=== PATIENT | female | born 1940 | race Caucasian/White ===

== ENCOUNTER 2017-07-19 15:30 | Emergency (ER) | payer MEDICARE, OTHER ==
--- NOTE | 2017-07-19 17:15 | UC ---
FLU HPI - HPI Summary HPI Summary: 76 year old female presents with complains of fever, chills, left ear pain and malaise. - History of Current Complaint Chief Complaint: UCGeneralIllness Stated Complaint: HOT AND COLD FLASHES,EAR COMPLAINT Time Seen by Provider: 07/19/17 17:15 Hx Obtained From: Patient Onset/Duration: Sudden Onset Severity Currently: Moderate Severity Initially: Severe Associated Signs & Symptoms: Positive: Negative - Risk Factors Influenza Risk Factors: Negative - Allergy/Home Medications Allergies/Adverse Reactions: Allergies Allergy/AdvReac Type Severity Reaction Status Date / Time Cephalexin [From Keflex] Allergy Unknown Verified 07/19/17 17:31 Reaction Details Cephalosporins Allergy Unknown Verified 07/19/17 17:31 Reaction Details Codeine Allergy Unknown Verified 07/19/17 17:31 Reaction Details Levofloxacin [From Levaquin] Allergy Unknown Verified 07/19/17 17:31 Reaction Details Magnesium Allergy Unknown Verified 07/19/17 17:31 Reaction Details Nitrofurantoin Allergy Unknown Verified 07/19/17 17:31 [From Macrobid] Reaction Details Ofloxacin [From Floxin] Allergy Unknown Verified 07/19/17 17:31 Reaction Details Omeprazole Allergy Unknown Verified 07/19/17 17:31 Reaction Details Paroxetine [From Paxil] Allergy Unknown Verified 07/19/17 17:31 Reaction Details Penicillins Allergy Unknown Verified 07/19/17 17:31 Reaction Details Polyethylene Glycol Allergy Unknown Verified 07/19/17 17:31 [From MiraLax] Reaction Details Pseudoephedrine Allergy Unknown Verified 07/19/17 17:31 [From Sudafed] Reaction Details Sulfa Antibiotics Allergy Unknown Verified 07/19/17 17:31 Reaction Details Venlafaxine [From Effexor] Allergy Unknown Verified 07/19/17 17:31 Reaction Details PMH/Surg Hx/FS Hx/Imm Hx Previously Healthy: Yes - Surgical History Surgical History: Yes Surgery Procedure, Year, and Place: T & A as a child. stent in brain. hysterectomy - Family History Known Family History: Positive: None - Social History Alcohol Use: None Substance Use Type: None Smoking Status (MU): Never Smoked Tobacco - Immunization History Most Recent Influenza Vaccination: 2017 Review of Systems Constitutional: Fever, Chills, Fatigue Skin: Negative Eyes: Negative ENT: Ear Ache Respiratory: Negative Cardiovascular: Negative Gastrointestinal: Negative Genitourinary: Negative Motor: Negative Neurovascular: Negative Musculoskeletal: Negative Neurological: Headache Psychological: Negative All Other Systems Reviewed And Are Negative: Yes Physical Exam Triage Information Reviewed: Yes Appearance: Ill-Appearing Vital Signs: Initial Vital Signs Temp 36.4 C 07/19/17 17:01 Pulse 85 07/19/17 17:01 Resp 24 07/19/17 17:01 BP 143/85 07/19/17 17:01 Pulse Ox 97 07/19/17 17:01 Eye Exam: Normal ENT: Positive: Nasal congestion, Nasal drainage Dental Exam: Normal Neck exam: Normal Neck: Positive: 1 Respiratory: Positive: Wheezing Cardiovascular Exam: Normal Abdominal Exam: Normal Musculoskeletal Exam: Normal Neurological: Positive: Fatigued, Lethargic Psychological Exam: Normal Skin Exam: Normal Flu Course/Dx - Differential Dx/Diagnosis Provider Diagnoses: malaise. ear pain. dehydration. fever. chills. hot flashes. syncope Discharge - Discharge Plan Condition: Stable Disposition: OTHER Discharge Disposition Comment: patient suggested to go to the er Patient Education Materials: Fever in Adults (ED) Referrals: Aly Mendoza MD [Primary Care Provider] - Additional Instructions: patient suggested to go to the er for severe dehydration and fever.
[2017-07-19 17:49] VITALS: BP 182/95
== END 2017-07-19 17:49 ==
LOC: UCCORT 15:30
DX: H92.02 Otalgia, left ear (principal); R53.81 Other malaise; E86.0 Dehydration; R50.9 Fever, unspecified; N95.1 Menopausal and female climacteric states; R55 Syncope and collapse; Z88.1 Allergy status to other antibiotic agents; Z88.5 Allergy status to narcotic agent; Z88.8 Allergy status to other drugs, medicaments and biological substances; Z88.0 Allergy status to penicillin; Z88.2 Allergy status to sulfonamides; Z90.710 Acquired absence of both cervix and uterus
CPT/HCPCS: 87502; 93005; 99213; G0463

== ENCOUNTER 2018-03-29 16:57 | Emergency (ER) | payer MEDICAID, MEDICARE, OTHER ==
[2018-03-29 18:10] VITALS: BP 150/71
--- NOTE | 2018-03-29 18:51 | UC ---
Complaint Female HPI - HPI Summary HPI Summary: several day history of urinary frequency, urgency and malaise, with temp of 99 here today. No analgesics used. Feeling dizzy which is poorly described, sort of spinny. No falls. Does use a walker for support. History of UTI's, most recently treated with ? azithromycinl. No headache, nausea, vomiting, abdominal pain. Appetite poor, attributes to heat and humidity, and states this is why she feels unwell. - History Of Current Complaint Chief Complaint: UCGU Stated Complaint: URINARY, DIZZINESS Time Seen by Provider: 03/29/18 18:14 Hx Obtained From: Patient, Family/Kid Club Attendant - here with tan. Med list and antibiotic reaction with inconsistencies from both historians. Onset/Duration: Gradual Onset, Lasting Days Timing: Intermittent Severity Initially: Moderate Severity Currently: Moderate Pain Intensity: 0 Character: Burning Aggravating Factor(s): Urination Alleviating Factor(s): Nothing - Allergies/Home Medications Allergies/Adverse Reactions: Allergies Allergy/AdvReac Type Severity Reaction Status Date / Time cephalexin [From Keflex] Allergy Unknown Verified 03/29/18 18:01 Reaction Details Cephalosporins Allergy Unknown Verified 03/29/18 18:01 Reaction Details levofloxacin Allergy Unknown Verified 03/29/18 18:01 Reaction Details magnesium Allergy Unknown Verified 03/29/18 18:01 Reaction Details nitrofurantoin Allergy Unknown Verified 03/29/18 18:01 [From Macrobid] Reaction Details ofloxacin [From Floxin] Allergy Unknown Verified 03/29/18 18:01 Reaction Details omeprazole Allergy Unknown Verified 03/29/18 18:01 Reaction Details paroxetine [From Paxil] Allergy Unknown Verified 03/29/18 18:01 Reaction Details Penicillins Allergy Unknown Verified 03/29/18 18:01 Reaction Details polyethylene glycol 3350 Allergy Unknown Verified 03/29/18 18:01 [From Miralax] Reaction Details pseudoephedrine Allergy Unknown Verified 03/29/18 18:01 [From Sudafed] Reaction Details Sulfa (Sulfonamide Allergy Unknown Verified 03/29/18 18:01 Antibiotics) Reaction Details venlafaxine Allergy Unknown Verified 03/29/18 18:01 Reaction Details Home Medications: Home Medications Calcium Carbonate/Vitamin D2 [Oyster Shell Calcium-Vit D Tab] 1 tab DAILY [History Confirmed 03/29/18] FLUoxetine CAP* [Prozac CAP*] 40 mg DAILY 03/29/18 [History Confirmed 03/29/18] Lisinopril TAB* [Prinivil TAB 10 MG*] 20 mg DAILY 03/29/18 [History Confirmed ] Pantoprazole TAB (NF) [Protonix TAB (NF)] 1 tab DAILY 03/29/18 [History Confirmed 03/29/18] Simvastatin [Zocor 5 MG-] 10 mg DAILY 03/29/18 [History Confirmed 03/29/18] PMH/Surg Hx/FS Hx/Imm Hx Previously Healthy: No - seeing a ophthalmic medical assistant and cardiac cath technician soon --not clear why GI/ History: Gastroesophageal Reflux Psychological History: Depression - Surgical History Surgical History: Yes Surgery Procedure, Year, and Place: T & A as a child. stent in brain. hysterectomy - Family History Known Family History: Positive: Cardiac Disease, Hypertension - Social History Occupation: Retired Lives: Alone Alcohol Use: None Substance Use Type: None Smoking Status (MU): Never Smoked Tobacco - Immunization History Most Recent Influenza Vaccination: 2017 Review of Systems Constitutional: Fatigue, Other - poor appetite Skin: Negative Eyes: Negative ENT: Negative Respiratory: Negative Cardiovascular: Other - dizziness. Gastrointestinal: Negative Genitourinary: Dysuria, Frequency, Urgency Motor: Negative Neurovascular: Negative Musculoskeletal: Negative Psychological: Depressed - treated depression; patient states takes 20mg fluoxetine, pharmacy record states 40mg Is Patient Immunocompromised?: No All Other Systems Reviewed And Are Negative: Yes Physical Exam Triage Information Reviewed: Yes Appearance: No Pain Distress, Ill-Appearing - elderly woman, looks stated age, alert, vague, but interactive. Vital Signs: Initial Vital Signs Temp 99.1 F 03/29/18 18:04 Pulse 89 03/29/18 18:04 Resp 20 03/29/18 18:04 BP 150/71 03/29/18 18:04 Pulse Ox 99 03/29/18 18:04 Eyes: Positive: Conjunctiva Clear, Other: - Pupils small, equal and reactive. Normal eom without vertigo ENT: Positive: Pharynx normal Neck: Positive: Supple, Nontender, No Lymphadenopathy Respiratory: Positive: Lungs clear, Normal breath sounds Cardiovascular: Positive: RRR, Murmur:Sys:Grade _?_/ - 2/6 upper left sternal border without radiation Abdominal Exam: Other - examined sittiing, could not get to exam table. Abdomen Description: Positive: Soft. Negative: CVA Tenderness (R), CVA Tenderness (L) Musculoskeletal Exam: Normal, Other - kyphotic chest wall Neurological: Positive: Alert, Muscle Tone Normal Psychological Exam: Normal Diagnostics - Laboratory Diagnostic Studies Completed/Ordered: UA with leukocytes. Complaint Female Dx - Course Course Of Treatment: fosfomycin for UTI - Differential Dx/Diagnosis Differential Diagnosis/HQI/PQRI: Urinary Tract Infection Provider Diagnoses: UTI, malaise. Medication history unclear as reviewed with pharmacist. Discharge - Sign-Out/Discharge Documenting (check all that apply): Patient Departure All imaging exams completed and their final reports reviewed: No Studies - Discharge Plan Condition: Stable Disposition: HOME Prescriptions: Fosfomycin(NF) [Monurol(NF)] 3 gm PO ONCE #1 georgiana Referrals: Jonah ZAFAR,Danny [Primary Care Provider] - Additional Instructions: You have been prescribed a very effective single dose treatment for urinary tract infection. Urine culture has been sent. It is essential that you follow up with your primary care doctor next week; please take all medication to the visit, and ensure that you know the medications which you are taking. I suggest that you carry a list with you. If you continue to feel unwell, please go to the emergency room for assessment. - Billing Disposition and Condition Condition: STABLE Disposition: Home
--- NOTE | 2018-03-29 19:22 | UC ---
- Progress Note Progress Note: Recieved call that fosfomcin costs 90 dollars and is prohibitivie. [place] [facility] [place]. No details of allergic reactions available. Rx sent for cipro, and asked pharmacist to delve into previous reaction to levo. To call back if a severe rxn. Discharge - Sign-Out/Discharge Documenting (check all that apply): Patient Departure All imaging exams completed and their final reports reviewed: No Studies - Discharge Plan Condition: Stable Disposition: HOME Prescriptions: Ciprofloxacin HCl [Cipro 250 MG TAB] 250 mg PO BID #6 tab Patient Education Materials: Urinary Tract Infection in Women (ED) Referrals: Jonah ZAFAR,Danny [Primary Care Provider] - Additional Instructions: You have been prescribed a very effective single dose treatment for urinary tract infection. Urine culture has been sent. It is essential that you follow up with your primary care doctor next week; please take all medication to the visit, and ensure that you know the medications which you are taking. I suggest that you carry a list with you. If you continue to feel unwell, please go to the emergency room for assessment. - Billing Disposition and Condition Condition: STABLE Disposition: Home
--- NOTE | 2018-04-01 08:34 | UC ---
- Progress Note Progress Note: Urine culture was negative. She can stop the cipro although she has probably taken the last dose. If she continues to not feel well, should follow up with PMD. Discharge - Sign-Out/Discharge Documenting (check all that apply): Patient Departure All imaging exams completed and their final reports reviewed: No Studies - Discharge Plan Condition: Stable Disposition: HOME Prescriptions: Ciprofloxacin HCl [Cipro 250 MG TAB] 250 mg PO BID #6 tab Patient Education Materials: Urinary Tract Infection in Women (ED) Referrals: Danny Mckenzie MD [Primary Care Provider] - Additional Instructions: You have been prescribed a very effective single dose treatment for urinary tract infection. Urine culture has been sent. It is essential that you follow up with your primary care doctor next week; please take all medication to the visit, and ensure that you know the medications which you are taking. I suggest that you carry a list with you. If you continue to feel unwell, please go to the emergency room for assessment. - Billing Disposition and Condition Condition: STABLE Disposition: Home
== END 2018-03-29 19:20 | disposition home or self-care (01) ==
LOC: UCCORT 16:57
DX: R53.81 Other malaise (principal); N39.0 Urinary tract infection, site not specified; Z88.1 Allergy status to other antibiotic agents; Z88.8 Allergy status to other drugs, medicaments and biological substances; K21.9 Gastro-esophageal reflux disease without esophagitis; F32.9 Major depressive disorder, single episode, unspecified
CPT/HCPCS: 81003; 87086; 99212; G0463

== ENCOUNTER 2019-09-04 12:57 | Emergency (ER) | payer MEDICARE, OTHER ==
--- NOTE | 2019-09-04 13:11 | ED ---
Altered Mental Status - HPI Summary HPI Summary: 78 year old F brought in by EMS from [facility] to [facility] accompanied by family members complains of altered mental status since yesterday 09/03/2019 PM. [facility] nursing staff called patient's family last night for altered mental status, and increased lethargy and confusion per EMS. [facility] staff gave patient a Duoneb today prior to arrival per EMS. Daughter states she went to visit patient this morning and found patient slumped to the side in her chair at 1100 09/04/2019. EMS notes that patient was hypertensive en route but no hx hypertension. Patient reports urine incontinence that started several days ago, general weakness, and fatigue. No numbness, tingliness, pain in bilateral lower extremities. No abdominal pain, dysuria. Patient states she does not want to live any longer and that she has been "tired of living like this for a while now." Patient had a fall 2 weeks ago, sustained spinal fractures, and is wearing back brace per EMS. No back pain currently per patient. Symptoms aggravated by nothing. Symptoms alleviated by nothing. Medications reviewed. On aspirin 81 mg. Allergies noted. - History Of Current Complaint Stated Complaint: PT NOT ACTING LIKE HERSELF PER EMS Hx Obtained From: Patient, Family/Pattern Keeper - daughter, EMS Onset/Duration: Still Present Timing: Constant, Lasting Hours - yesterday 09/03/2019 PM Severity Currently: None Character: Confusion, Lethargy Aggravating Factor(s): Nothing Alleviating Factor(s): Nothing - Allergies/Home Medications Allergies/Adverse Reactions: Allergies Allergy/AdvReac Type Severity Reaction Status Date / Time cephalexin [From Keflex] Allergy Unknown Verified 03/29/18 18:01 Reaction Details Cephalosporins Allergy Unknown Verified 03/29/18 18:01 Reaction Details levofloxacin Allergy Unknown Verified 03/29/18 18:01 Reaction Details magnesium Allergy Unknown Verified 03/29/18 18:01 Reaction Details nitrofurantoin Allergy Unknown Verified 03/29/18 18:01 [From Macrobid] Reaction Details ofloxacin [From Floxin] Allergy Unknown Verified 03/29/18 18:01 Reaction Details omeprazole Allergy Unknown Verified 03/29/18 18:01 Reaction Details paroxetine [From Paxil] Allergy Unknown Verified 03/29/18 18:01 Reaction Details Penicillins Allergy Unknown Verified 03/29/18 18:01 Reaction Details polyethylene glycol 3350 Allergy Unknown Verified 03/29/18 18:01 [From Miralax] Reaction Details pseudoephedrine Allergy Unknown Verified 03/29/18 18:01 [From Sudafed] Reaction Details Sulfa (Sulfonamide Allergy Unknown Verified 03/29/18 18:01 Antibiotics) Reaction Details venlafaxine Allergy Unknown Verified 03/29/18 18:01 Reaction Details Home Medications: Home Medications Acetaminophen [Acetaminophen Extra Strength] 1,000 mg PO Q6H PRN 09/04/19 [ History Confirmed 09/04/19] Albuterol Sulfate [Proventil Hfa] 2 puff INH Q4H PRN 09/04/19 [History Confirmed 09/04/19] Ascorbic Acid TAB* [Vitamin C TAB*] 500 mg PO DAILY 09/04/19 [History Confirmed 09/04/19] Guaifenesin/Dextromethorphan [Robitussin Cough & Chest 20-400 mg/20Ml] 5 ml PO Q4H PRN 09/04/19 [History Confirmed 09/04/19] Ipratropium 0.5MG/2.5ML NEB* [Atrovent 0.5 MG NEB.SHARMAINE*] 3 ml INH TID PRN [History Confirmed 09/04/19] Lidocaine PATCH 5%* [Lidoderm 5% Patch*] 1 patch TRANSDERM DAILY 09/04/19 [ History Confirmed 09/04/19] LoraTADine TAB(NF) [Claritin 10 MG TAB(NF)] 10 mg PO DAILY 09/04/19 [History Confirmed 09/04/19] Magnesium Hydroxide LIQ* [Milk of Magnesia LIQ*] 30 ml PO DAILY PRN 09/04/19 [ History Confirmed 09/04/19] QUEtiapine TAB* [Seroquel 25 MG TAB*] 25 mg PO BEDTIME 09/04/19 [History Confirmed 09/04/19] Sennosides/Docusate Sodium [Senna Plus 8.6-50 mg Softgel] 2 each PO BEDTIME 07/12 [History Confirmed 09/04/19] clonazePAM TAB(*) [KlonoPIN TAB(*)] 0.5 mg PO DAILY 09/04/19 [History Confirmed 09/04/19] traMADol TAB* [Ultram*] 50 mg PO Q12H PRN MDD 400mg 09/04/19 [History Confirmed 09/04/19] PMH/Surg Hx/FS Hx/Imm Hx Endocrine/Hematology History: Denies: Hx Diabetes Cardiovascular History: Reports: Hx Hypertension Respiratory History: Reports: Hx Asthma, Hx Chronic Obstructive Pulmonary Disease (COPD) Musculoskeletal History: Reports: Hx of Fracture(s) - spinal - Cancer History Cancer Type, Location and Year: hysterectomy due to ca - Surgical History Surgery Procedure, Year, and Place: T & A as a child. stent in brain. hysterectomy - Family History Known Family History: Positive: Cardiac Disease, Hypertension - Social History Alcohol Use: None Substance Use Type: Reports: None Hx Tobacco Use: No Smoking Status (MU): Never Smoked Tobacco Review of Systems Positive: Fatigue, Other - increased lethargy Negative: Abdominal Pain Positive: incontinence. Negative: dysuria Neurological/Mental Status: Negative - numbness, tingliness, pain in bilateral lower extremities, Other - AMS, increased confusion Positive: Weakness Positive: Depressed All Other Systems Reviewed And Are Negative: Yes Physical Exam - Summary Physical Exam Summary: Constitutional: Well-developed, Well-nourished, Alert. (-) Distressed. She appears weak and fatigued Skin: Warm, Dry HENT: Normocephalic; Atraumatic; Dry mucous membranes Eyes: Conjunctiva normal Neck: Musculoskeletal ROM normal neck. (-) JVD, (-) Stridor, (-) Tracheal deviation Cardio: Rhythm regular, rate normal, Heart sounds normal; Intact distal pulses; The pedal pulses are 2+ and symmetric. Radial pulses are 2+ and symmetric. (-) Murmur Pulmonary/Chest wall: Effort normal. (-) Respiratory distress, (-) Wheezes, (-) Rales Abd: Soft, (-) tenderness, (-) Distension, (-) Guarding, (-) Rebound Musculoskeletal: (-) Edema Lymph: (-) Cervical adenopathy Neuro: Alert, Oriented x3. No focal deficits Psych: Patient appears depressed and states that she does not want to live any longer GCS: 15 Triage Information Reviewed: Yes Vital Signs Reviewed: Yes Procedures - Sedation Patient Received Moderate/Deep Sedation with Procedure: No Diagnostics - Laboratory Result Diagrams: 09/04/19 13:31 09/04/19 13:31 Lab Statement: Any lab studies that have been ordered have been reviewed, and results considered in the medical decision making process. - CT Brain CT Interpretation Completed By: Radiologist Summary of CT Findings: #. No acute intracranial process evident. #. 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 #. Involutional change and stigmata of chronic small vessel ischemic disease with interval progression. ED physician has reviewed this report. - EKG 1319 Cardiac Rate: NL - 89 BPM EKG Rhythm: Sinus Rhythm Summary of EKG Findings: No ischemic changes. ED physician has reviewed and interpreted this EKG Altered Mental Statu Course/Dx - Course Course Of Treatment: 78 y/o F brought in by EMS from [facility] complains of altered mental status, increased lethargy and confusion since yesterday 2019 PM, and urine incontinence, general weakness, and fatigue for several days. Patient states she does not want to live any longer and that she has been "tired of living like this for a while now." Patient had a fall 2 weeks ago, sustained spinal fractures, and is wearing back brace per EMS. No back pain currently per patient. Upon physical exam, patient appears weak and fatigued. Dry mucous membranes. No focal deficits. Patient appears depressed and states that she does not want to live any longer. Bloodwork results with no significant abnormalities except for alkaline phosphatase 119. An EKG shows sinus rhythm 89 BPM and no ischemic changes. Brain CT shows, per radiologist: # . No acute intracranial process evident. #. 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 #. Involutional change and stigmata of chronic small vessel ischemic disease with interval progression. In the ED course, the patient was given normal saline fluids for dehydration. Patient will be discharged home with follow up from primary care provider in 2-3 days. Patient was instructed to return to Emergency Department for new or worsening symptoms. Patient understands and is agreeable to this plan. - Diagnoses Provider Diagnoses: General weakness, Dehydration - Provider Notifications Discussed Care Of Patient With: Dorothy Zavala Time Discussed With Above Provider: 14:30 Discharge ED - Sign-Out/Discharge Documenting (check all that apply): Patient Departure - Discharge Plan Condition: Stable Disposition: HOME Patient Education Materials: Dehydration (ED), Weakness (ED) Referrals: Danny Mckenzie MD [Medical Doctor] - 2 Days Additional Instructions: Follow up with your primary care provider in 2-3 days. Return to the Emergency Department for new or worsening symptoms. - Billing Disposition and Condition Condition: STABLE Disposition: Home - Attestation Statements Document Initiated by [place]: Yes Documenting Scribe: Johana Benson Provider For Whom Raghue is Documenting (Include Credential): Jase Mckinley DO Scribe Attestation: IJohana, scribed for Jase Mckinley DO on 09/04/19 at 1953. Scribe Documentation Reviewed: Yes Provider Attestation: The documentation as recorded by the Johana hernandez accurately reflects the service I personally performed and the decisions made by me, Jase Mckinley DO Status of Scribulis Document: Viewed
[2019-09-04] MEDS ORDERED: NS 0.9% 1000 ML** 1,000 ML IV ONE (13:12)
[2019-09-04 13:40] LABS: ABS Basophils 0.1 10^3/ul (0-0.2); ABS Eosinophils 0.4 10^3/ul (0-0.6); ABS Lymphocytes 1.7 10^3/ul (1.0-4.8); ABS Monocytes 0.6 10^3/ul (0-0.8); ABS Neutrophils 6.4 10^3/ul (1.5-7.7); Eosinophil % 4.2 %; Hematocrit 39 % (35-47); Lymphocyte % 18.4 %; Mean Corpuscular HGB Conc 33 g/dL (31-36); Mean Corpuscular Hemoglobin 29 pg (27-31); Mean Corpuscular Volume 87 fL (80-97); Mean Platelet Volume 7.9 fL (7.4-10.4); Platelet Count 275 10^3/uL (150-450); Red Blood Count 4.49 10^6 /uL (3.70-4.87); Red Cell Distribution Width 15 % (10-15); White Blood Count 9.2 10^3/uL (3.5-10.8)
[2019-09-04 14:06] LABS: Albumin 4.4 g/dL (3.2-5.2); Albumin/Globulin Ratio 1.4 (1-3); BUN/Creatinine Ratio 18.1 (8-20); Calcium 9.8 mg/dL (8.6-10.3); EGFR African American 94.3 (>60); EGFR Non-African American 77.9 (>60); Globulin 3.1 g/dL (2-4); Magnesium 1.9 mg/dL (1.9-2.7); Potassium 4.2 mmol/L (3.5-5.0); Total Bilirubin 0.3 mg/dL (0.2-1.0); Total Protein 7.5 g/dL (6.4-8.9)
[2019-09-04 14:57] LABS: C Reactive Protein 25.02 mg/L (<8.01)
[2019-09-04 15:51] LABS: TSH (Thyroid Stimulating Horm) 3.21 mcIU/mL (0.34-5.60)
[2019-09-04 16:55] LABS: Urine Appearance Clear; Urine Bilirubin Negative (Negative); Urine Blood Negative (Negative); Urine Color Straw; Urine Glucose Negative (Negative); Urine Ketones Negative (Negative); Urine Nitrite Negative (Negative); Urine Protein Negative (Negative); Urine Specific Gravity 1.006 (1.010-1.030); Urine Urobilinogen Negative (Negative)
[2019-09-04 19:08] VITALS: BP 179/98
== END 2019-09-04 19:08 | disposition home or self-care (01) ==
LOC: ED 12:57
DX: R53.1 Weakness (principal); R41.82 Altered mental status, unspecified; E86.0 Dehydration; J44.9 Chronic obstructive pulmonary disease, unspecified; Z88.2 Allergy status to sulfonamides; Z88.0 Allergy status to penicillin; Z79.899 Other long term (current) drug therapy
CPT/HCPCS: 36415; 70450; 80053; 81003; 83735; 84443; 84484; 85025; 86140; 93005; 96360; 96361; 99285

== ENCOUNTER 2021-07-08 12:54 | Inpatient (IN) ==
[2021-07-08] MEDS ORDERED: Albuterol HFA INHALER 8 gm MDI INH ONE (13:43)
[2021-07-08] MEDS ORDERED: Dexamethasone IV 4 MG/ML VIAL 1 ml VIAL IV SLOW PU ONE (13:43)
[2021-07-08 17:47] LABS: Venous Bicarbonate HCO3 28.2 mmol/L (24-28)
[2021-07-08 17:58] LABS: Activated Partial Thrombo Time 27.3 seconds (26.0-38.0); INR 1.15 (0.86-1.15)
[2021-07-08 18:01] LABS: Hematocrit 41 % (35-47); Hemoglobin 13.9 g/dL (12.0-16.0); Mean Corpuscular HGB Conc 34 g/dL (31-36); Mean Corpuscular Hemoglobin 30 pg (27-31); Mean Corpuscular Volume 90 fL (80-97); Red Blood Count 4.62 10^6 /uL (3.70-4.87); Red Cell Distribution Width 14 % (10-15); White Blood Count 13.4 10^3/uL (3.5-10.8)
[2021-07-08 18:10] LABS: Albumin 3.9 g/dL (3.2-5.2); C Reactive Protein 91.58 mg/L (<8.01); Calcium 9.5 mg/dL (8.6-10.3); Globulin 4.1 g/dL (2-4); Potassium 3.6 mmol/L (3.5-5.0); Total Bilirubin 0.3 mg/dL (0.2-1.0); eGFR CKD-EPI 88.2 (>60)
[2021-07-08 18:43] LABS: Ferritin 96.2 ng/mL (11-307)
[2021-07-08 18:50] LABS: ABS Lymphocytes 0.9 10^3/ul (1.0-4.8); ABS Monocytes 0.2 10^3/ul (0-0.8); ABS Neutrophils 12.2 10^3/ul (1.5-7.7); Eosinophil % 0.3 %; Lymphocyte % 6.4 %; Mean Platelet Volume 8.1 fL (7.4-10.4); Nucleated Red Blood Cells % 0.1; Platelet Count 284 10^3/uL (150-450)
[2021-07-08] MEDS ORDERED: Iohexol 350 (CONTRAST) 500 ML MDV IV ONE (19:12)
[2021-07-08] MEDS ORDERED: Lactated Ringers 1000 ml BAG IV.FLUID IV ONE (20:06)
[2021-07-08] MEDS ORDERED: Aztreonam 2 GM in NS 0.9% 50 ML 50 ML IVPB ONE (20:06)
[2021-07-08] MEDS ORDERED: Azithromycin 500 mg/250 ml NS 500 MG/250 ML BAG IVPB ONE (20:06)
[2021-07-08] MEDS ORDERED: AZTREONAM 2 GM x ONCE IVPB ONE (21:00)
[2021-07-08] MEDS ORDERED: DOXYcycline 100 MG in NS 0.9% 250 ml 250 ML IVPB SCH (23:00)
[2021-07-08] MEDS ORDERED: Vancomycin 1,250 MG in NS 0.9% 250 ml 250 ML IVPB ONE (23:15)
[2021-07-09] MEDS ORDERED: Albuterol/Ipratropium NEB.SOL (2.5/0.5 MG) 3 ML NEB.SOLN INH PRN (00:08)
[2021-07-09] MEDS ORDERED: NS 0.9% 250 ml 250 ML ONE (00:52)
[2021-07-09] MEDS: Enoxaparin 40 MG/0.4 ML SYR SUBCUT SCH ×2 (01:27→21:50)
[2021-07-09 08:57] LABS: ABS Basophils 0.1 10^3/ul (0-0.2); ABS Lymphocytes 1.5 10^3/ul (1.0-4.8); ABS Monocytes 0.6 10^3/ul (0-0.8); Hematocrit 35 % (35-47); Hemoglobin 11.5 g/dL (12.0-16.0); Lymphocyte % 13.2 %; Mean Corpuscular HGB Conc 33 g/dL (31-36); Mean Corpuscular Hemoglobin 30 pg (27-31); Mean Corpuscular Volume 90 fL (80-97); Mean Platelet Volume 7.7 fL (7.4-10.4); Platelet Count 267 10^3/uL (150-450); Red Blood Count 3.86 10^6 /uL (3.70-4.87); Red Cell Distribution Width 14 % (10-15)
[2021-07-09] MEDS ORDERED: Vancomycin per Pharmacy 1 EA NOTE FOLLOW UP PRN (09:04)
[2021-07-09 09:14] LABS: C Reactive Protein 92.98 mg/L (<8.01); Calcium 8.8 mg/dL (8.6-10.3); Magnesium 1.8 mg/dL (1.9-2.7); Potassium 3.8 mmol/L (3.5-5.0)
[2021-07-09] MEDS ORDERED: Perflutren Lipid Microsphere 3 ML VIAL ONE (09:20)
[2021-07-09] MEDS ORDERED: Midazolam 5 mg/5 ml VIAL 1 mg/ml 5 ml VIAL (5 mg) ONE (13:12)
[2021-07-09] MEDS ORDERED: fentaNYL 100 mcg/2 ml 50 MCG/ML VIAL ONE (13:12)
[2021-07-09] MEDS ORDERED: Naloxone 0.4 mg VIAL 0.4 mg/ml 1 ml VIAL ONE (13:12)
[2021-07-09] MEDS ORDERED: Flumazenil 0.5 mg/5 ml 0.1 MG/ML 5 ml VIAL ONE (13:12)
[2021-07-09] MEDS: Vancomycin 1000 MG in NS 0.9% 250 ML IVPB SCH (13:30)
[2021-07-09] MEDS: Nystatin TOP POWDER 15 GM BTL TOPICAL SCH ×2 (16:05→21:41)
[2021-07-09] MEDS: cefTRIAXone 1 gm/50 mL NS BAG 1 GM/50 ML BAG IVPB SCH (18:03)
[2021-07-09] MEDS: Mometasone/Formoter 200/5 MDI INH SCH (21:25)
[2021-07-09] MEDS: Azithromycin 500 mg/250 ml NS 500 MG/250 ML BAG IVPB SCH (21:34)
[2021-07-10] MEDS: guaiFENesin 100 mg/5 ml LIQ unit dose cup PO PRN ×2 (04:09→21:35)
[2021-07-10] MEDS: Vancomycin 1000 MG in NS 0.9% 250 ML IVPB SCH ×2 (04:09→15:06)
[2021-07-10 06:16] LABS: Urine Appearance Clear; Urine Bilirubin Negative (Negative); Urine Blood Negative (Negative); Urine Color Yellow; Urine Glucose Negative (Negative); Urine Ketones Negative (Negative); Urine Nitrite Negative (Negative); Urine Protein Negative (Negative); Urine Specific Gravity 1.018 (1.002-1.030); Urine Urobilinogen Negative (Negative)
[2021-07-10 08:11] LABS: ABS Basophils 0.1 10^3/ul (0-0.2); ABS Eosinophils 0.1 10^3/ul (0-0.6); ABS Lymphocytes 2.4 10^3/ul (1.0-4.8); ABS Monocytes 0.6 10^3/ul (0-0.8); ABS Neutrophils 5.8 10^3/ul (1.5-7.7); Eosinophil % 1.5 %; Hematocrit 32 % (35-47); Hemoglobin 10.7 g/dL (12.0-16.0); Lymphocyte % 26.7 %; Mean Corpuscular HGB Conc 34 g/dL (31-36); Mean Corpuscular Hemoglobin 31 pg (27-31); Mean Corpuscular Volume 91 fL (80-97); Mean Platelet Volume 7.6 fL (7.4-10.4); Platelet Count 202 10^3/uL (150-450); Red Blood Count 3.47 10^6 /uL (3.70-4.87); Red Cell Distribution Width 15 % (10-15)
[2021-07-10 08:27] LABS: Calcium 8.3 mg/dL (8.6-10.3); Potassium 3.7 mmol/L (3.5-5.0); eGFR CKD-EPI 89.2 (>60)
[2021-07-10] MEDS: Nystatin TOP POWDER 15 GM BTL TOPICAL SCH ×2 (09:28→21:40)
[2021-07-10] MEDS: Mometasone/Formoter 200/5 MDI INH SCH ×2 (09:29→19:51)
[2021-07-10] MEDS: Albuterol HFA INHALER 8 gm MDI INH PRN (09:29)
[2021-07-10] MEDS ORDERED: Vancomycin Trough Check NOTE FOLLOW UP ONE (14:00)
[2021-07-10] MEDS: Albuterol/Ipratropium NEB.SOL (2.5/0.5 MG) 3 ML NEB.SOLN INH SCH ×2 (16:31→19:50)
[2021-07-10] MEDS: cefTRIAXone 1 gm/50 mL NS BAG 1 GM/50 ML BAG IVPB SCH (17:41)
[2021-07-10] MEDS: Azithromycin 500 mg/250 ml NS 500 MG/250 ML BAG IVPB SCH (21:28)
[2021-07-10] MEDS: Enoxaparin 40 MG/0.4 ML SYR SUBCUT SCH (21:35)
[2021-07-11] MEDS: Albuterol/Ipratropium NEB.SOL (2.5/0.5 MG) 3 ML NEB.SOLN INH SCH ×7 (00:07→23:09)
[2021-07-11] MEDS ORDERED: Magnesium Hydroxide LIQ 30 ML UDC PO PRN (03:11)
[2021-07-11] MEDS: Vancomycin 1000 MG in NS 0.9% 250 ML IVPB SCH ×2 (04:15→14:37)
[2021-07-11 05:08] LABS: ABS Lymphocytes 2.4 10^3/ul (1.0-4.8); ABS Monocytes 0.5 10^3/ul (0-0.8); ABS Neutrophils 7.4 10^3/ul (1.5-7.7); Eosinophil % 0.1 %; Hematocrit 33 % (35-47); Hemoglobin 10.8 g/dL (12.0-16.0); Lymphocyte % 23.5 %; Mean Corpuscular HGB Conc 33 g/dL (31-36); Mean Corpuscular Hemoglobin 30 pg (27-31); Mean Corpuscular Volume 90 fL (80-97); Mean Platelet Volume 8.2 fL (7.4-10.4); Platelet Count 211 10^3/uL (150-450); Red Blood Count 3.61 10^6 /uL (3.70-4.87); Red Cell Distribution Width 14 % (10-15); White Blood Count 10.4 10^3/uL (3.5-10.8)
[2021-07-11 05:25] LABS: Calcium 8.3 mg/dL (8.6-10.3); Potassium 3.2 mmol/L (3.5-5.0); eGFR CKD-EPI 86.3 (>60)
[2021-07-11] MEDS: Mometasone/Formoter 200/5 MDI INH SCH ×2 (06:58→19:40)
[2021-07-11] MEDS: Albuterol HFA INHALER 8 gm MDI INH PRN (07:01)
[2021-07-11] MEDS ORDERED: Potassium Chlor 20 meq TAB.ER PO ONE (07:57)
[2021-07-11] MEDS: Nystatin TOP POWDER 15 GM BTL TOPICAL SCH ×2 (08:37→21:14)
[2021-07-11 08:53] LABS: Magnesium 1.9 mg/dL (1.9-2.7)
[2021-07-11] MEDS: cefTRIAXone 1 gm/50 mL NS BAG 1 GM/50 ML BAG IVPB SCH (16:57)
[2021-07-11] MEDS ORDERED: Buffered Lidocaine 1% SYRIN 1 ml INTRADERM ONE (17:10)
[2021-07-11] MEDS: Azithromycin 500 mg/250 ml NS 500 MG/250 ML BAG IVPB SCH (21:05)
[2021-07-11] MEDS: Enoxaparin 40 MG/0.4 ML SYR SUBCUT SCH (21:07)
[2021-07-12] MEDS: Vancomycin 1000 MG in NS 0.9% 250 ML IVPB SCH (02:56)
[2021-07-12] MEDS: Albuterol/Ipratropium NEB.SOL (2.5/0.5 MG) 3 ML NEB.SOLN INH SCH ×3 (03:36→11:03)
[2021-07-12 06:08] LABS: ABS Lymphocytes 2.6 10^3/ul (1.0-4.8); ABS Monocytes 0.7 10^3/ul (0-0.8); ABS Neutrophils 6.3 10^3/ul (1.5-7.7); Eosinophil % 0.3 %; Hematocrit 31 % (35-47); Hemoglobin 10.2 g/dL (12.0-16.0); Lymphocyte % 27.3 %; Mean Corpuscular HGB Conc 33 g/dL (31-36); Mean Corpuscular Hemoglobin 30 pg (27-31); Mean Corpuscular Volume 91 fL (80-97); Mean Platelet Volume 7.9 fL (7.4-10.4); Platelet Count 212 10^3/uL (150-450); Red Blood Count 3.35 10^6 /uL (3.70-4.87); Red Cell Distribution Width 14 % (10-15); White Blood Count 9.7 10^3/uL (3.5-10.8)
[2021-07-12 06:29] LABS: Calcium 8.2 mg/dL (8.6-10.3); Potassium 3.7 mmol/L (3.5-5.0); eGFR CKD-EPI 86.6 (>60)
[2021-07-12] MEDS: Mometasone/Formoter 200/5 MDI INH SCH (07:48)
[2021-07-12] MEDS: Nystatin TOP POWDER 15 GM BTL TOPICAL SCH (09:27)
[2021-07-12] MEDS ORDERED: Albuterol/Ipratropium NEB.SOL (2.5/0.5 MG) 3 ML NEB.SOLN INH PRN (11:14)
[2021-07-12 16:13] VITALS: BP 118/53
== END 2021-07-12 18:25 | disposition home or self-care (01) | DRG 871 ==
LOC: EDHOLD 12:54 → ED 12:54 → SUATTDRO 22:02 → INTOOBSV 22:02 → OBSVTOIN 22:02 → MED 07-09 12:58
PROVIDERS: ADMIT Student in an Organized Health Care Education/Training Program; ATTEND Family Medicine

== ENCOUNTER 2021-11-25 16:55 | Inpatient (IN) ==
[2021-11-25] MEDS ORDERED: Dexamethasone IV 4 MG/ML VIAL 1 ml VIAL IV SLOW PU ONE (18:25)
[2021-11-25] MEDS ORDERED: Albuterol HFA INHALER 8 gm MDI INH ONE (18:25)
[2021-11-25 19:21] LABS: ABS Basophils 0.1 10^3/ul (0-0.2); ABS Eosinophils 0.1 10^3/ul (0-0.6); ABS Lymphocytes 2.1 10^3/ul (1.0-4.8); Eosinophil % 0.4 %; Hematocrit 37 % (35-47); Hemoglobin 12.3 g/dL (12.0-16.0); Lymphocyte % 11.6 %; Mean Corpuscular HGB Conc 33 g/dL (31-36); Mean Corpuscular Hemoglobin 29 pg (27-31); Mean Corpuscular Volume 88 fL (80-97); Mean Platelet Volume 8.2 fL (7.4-10.4); Platelet Count 361 10^3/uL (150-450); Red Blood Count 4.24 10^6 /uL (3.70-4.87); Red Cell Distribution Width 15 % (10-15); White Blood Count 18.2 10^3/uL (3.5-10.8)
[2021-11-25 19:33] LABS: Activated Partial Thrombo Time 33.6 seconds (26.0-38.0); INR 1.14 (0.86-1.15)
[2021-11-25 19:45] LABS: High Sens Troponin Baseline 9 pg/mL (<15)
[2021-11-25 20:06] LABS: ALT 21 U/L (7-52); Alkaline Phosphatase 113 U/L (35-149); Blood Urea Nitrogen 12 mg/dL (6-24); C Reactive Protein 173.92 mg/L (<8.01); CO2 Carbon Dioxide 28 mmol/L (22-32); Calcium 9.1 mg/dL (8.6-10.3); Chloride 97 mmol/L (101-111); Globulin 3.9 g/dL (2-4); Glucose 111 mg/dL (70-100); Sodium 132 mmol/L (135-145); Total Protein 7.9 g/dL (6.4-8.9); eGFR CKD-EPI 90.1 (>60)
[2021-11-25 20:15] LABS: Anion Gap 7 mmol/L (2-11)
[2021-11-25] MEDS ORDERED: Iohexol 350 (CONTRAST) 500 ML MDV IV ONE (20:17)
[2021-11-25 21:16] LABS: High Sensitivity Troponin 1 Hr 7 pg/mL (<15)
[2021-11-25] MEDS ORDERED: Ciprofloxacin 400mg IVPREMIX 400 MG/200 ML BAG IVPB ONE (22:01)
[2021-11-25] MEDS: Cefepime 2 GM in Dextrose 2 GM/50 ML BAG IV SCH (22:56)
[2021-11-25] MEDS ORDERED: Enoxaparin 40 MG/0.4 ML SYR SUBCUT SCH ×2 (23:00→23:45)
[2021-11-26] LABS: Potassium Redraw 4.3 mmol/L (3.5-5.0)
[2021-11-26] MEDS ORDERED: Acetylcysteine INHALATION SOL 200 MG/ML NEB.SOLN 10 ML INH SCH (01:00)
[2021-11-26] MEDS: Azithromycin 500 mg/250 ml NS 500 MG/250 ML BAG IVPB SCH (03:18)
[2021-11-26] MEDS: Enoxaparin 40 MG/0.4 ML SYR SUBCUT SCH (03:18)
[2021-11-26 04:49] LABS: Urine Appearance Cloudy; Urine Bilirubin Negative (Negative); Urine Blood Negative (Negative); Urine Color Yellow; Urine Glucose Negative (Negative); Urine Ketones Negative (Negative); Urine Nitrite Negative (Negative); Urine Protein 1+(30 mg/dL) (Negative); Urine Specific Gravity 1.032 (1.002-1.030); Urine Urobilinogen Negative (Negative)
[2021-11-26 04:53] LABS: Urine Bacteria 1+ (Absent); Urine Red Blood Cell Trace(0-2/hpf) (Absent); Urine Squamous Epithelial Cell Present (Absent); Urine White Blood Cell Trace(0-5/hpf) (Absent)
[2021-11-26] MEDS: Acetylcysteine INH SOL (RT) 200 MG/ML 4 ML VIAL INH SCH ×4 (05:59→20:18)
[2021-11-26] MEDS: Albuterol HFA INHALER 8 gm MDI INH PRN ×2 (06:01→11:30)
[2021-11-26 07:30] LABS: ABS Lymphocytes 1.2 10^3/ul (1.0-4.8); ABS Monocytes 0.2 10^3/ul (0-0.8); ABS Neutrophils 10.6 10^3/ul (1.5-7.7); Hematocrit 36 % (35-47); Hemoglobin 11.8 g/dL (12.0-16.0); Lymphocyte % 9.7 %; Mean Corpuscular HGB Conc 33 g/dL (31-36); Mean Corpuscular Hemoglobin 29 pg (27-31); Mean Corpuscular Volume 88 fL (80-97); Mean Platelet Volume 7.6 fL (7.4-10.4); Platelet Count 311 10^3/uL (150-450); Red Blood Count 4.06 10^6 /uL (3.70-4.87); Red Cell Distribution Width 15 % (10-15)
[2021-11-26 08:12] LABS: ALT 18 U/L (7-52); Albumin 3.3 g/dL (3.2-5.2); Albumin/Globulin Ratio 0.9 (1-3); Alkaline Phosphatase 95 U/L (35-149); Blood Urea Nitrogen 12 mg/dL (6-24); CO2 Carbon Dioxide 27 mmol/L (22-32); Calcium 8.7 mg/dL (8.6-10.3); Chloride 101 mmol/L (101-111); Globulin 3.8 g/dL (2-4); Glucose 136 mg/dL (70-100); Sodium 136 mmol/L (135-145); Total Protein 7.1 g/dL (6.4-8.9); eGFR CKD-EPI 92.6 (>60)
[2021-11-26 08:18] LABS: Anion Gap 8 mmol/L (2-11)
[2021-11-26] MEDS: Albuterol/Ipratropium NEB.SOL (2.5/0.5 MG) 3 ML NEB.SOLN INH SCH ×2 (08:45→13:54)
[2021-11-26] MEDS: Cefepime 2 GM in Dextrose 2 GM/50 ML BAG IV SCH ×2 (10:52→22:26)
[2021-11-26] MEDS ORDERED: Albuterol/Ipratropium NEB.SOL (2.5/0.5 MG) 3 ML NEB.SOLN INH PRN (11:33)
[2021-11-26 13:00] LABS: Potassium Redraw 4.5 mmol/L (3.5-5.0)
[2021-11-26] MEDS: Albuterol HFA INHALER 8 gm MDI INH SCH ×2 (13:28→20:40)
[2021-11-26] MEDS: Mometasone/Formoter 200/5 MDI INH SCH ×2 (13:52→20:39)
[2021-11-26] MEDS: SPIRIVA Respimat (tiotropium) 2.5 mcg/inh Inhaler INH SCH (13:53)
[2021-11-26] MEDS ORDERED: Senna TAB 8.6 mg TAB PO PRN (16:59)
[2021-11-26] MEDS: Nystatin TOP POWDER 15 GM BTL TOPICAL SCH (22:27)
[2021-11-27] MEDS: Albuterol HFA INHALER 8 gm MDI INH SCH ×4 (01:24→20:04)
[2021-11-27] MEDS: Enoxaparin 40 MG/0.4 ML SYR SUBCUT SCH (04:19)
[2021-11-27] MEDS: Azithromycin 500 mg/250 ml NS 500 MG/250 ML BAG IVPB SCH (04:19)
[2021-11-27 05:19] LABS: ABS Basophils 0.1 10^3/ul (0-0.2); ABS Lymphocytes 2.5 10^3/ul (1.0-4.8); ABS Monocytes 1.1 10^3/ul (0-0.8); ABS Neutrophils 12.9 10^3/ul (1.5-7.7); Eosinophil % 0.1 %; Hematocrit 35 % (35-47); Hemoglobin 11.4 g/dL (12.0-16.0); Lymphocyte % 15.3 %; Mean Corpuscular HGB Conc 33 g/dL (31-36); Mean Corpuscular Hemoglobin 29 pg (27-31); Mean Corpuscular Volume 89 fL (80-97); Mean Platelet Volume 7.7 fL (7.4-10.4); Platelet Count 378 10^3/uL (150-450); Red Blood Count 3.93 10^6 /uL (3.70-4.87); Red Cell Distribution Width 15 % (10-15); White Blood Count 16.6 10^3/uL (3.5-10.8)
[2021-11-27 05:39] LABS: Blood Urea Nitrogen 22 mg/dL (6-24); CO2 Carbon Dioxide 24 mmol/L (22-32); Calcium 8.9 mg/dL (8.6-10.3); Chloride 104 mmol/L (101-111); Glucose 123 mg/dL (70-100); Sodium 136 mmol/L (135-145); eGFR CKD-EPI 88.7 (>60)
[2021-11-27 05:41] LABS: Anion Gap 8 mmol/L (2-11)
[2021-11-27] MEDS: Mometasone/Formoter 200/5 MDI INH SCH ×2 (07:23→20:05)
[2021-11-27] MEDS: SPIRIVA Respimat (tiotropium) 2.5 mcg/inh Inhaler INH SCH (07:24)
[2021-11-27] MEDS: Nystatin TOP POWDER 15 GM BTL TOPICAL SCH ×2 (09:42→22:32)
[2021-11-27] MEDS: Cefepime 2 GM in Dextrose 2 GM/50 ML BAG IV SCH ×2 (11:27→22:17)
[2021-11-27] MEDS ORDERED: Potassium Chlor 20 meq TAB.ER PO ONE (11:46)
[2021-11-28] MEDS: Albuterol HFA INHALER 8 gm MDI INH SCH ×5 (01:42→20:05)
[2021-11-28] MEDS: Enoxaparin 40 MG/0.4 ML SYR SUBCUT SCH (04:19)
[2021-11-28 05:26] LABS: Hematocrit 34 % (35-47); Hemoglobin 10.9 g/dL (12.0-16.0); Mean Corpuscular HGB Conc 32 g/dL (31-36); Mean Corpuscular Hemoglobin 29 pg (27-31); Mean Corpuscular Volume 88 fL (80-97); Mean Platelet Volume 7.5 fL (7.4-10.4); Platelet Count 361 10^3/uL (150-450); Red Cell Distribution Width 15 % (10-15); White Blood Count 12.6 10^3/uL (3.5-10.8)
[2021-11-28 05:56] LABS: Calcium 8.7 mg/dL (8.6-10.3); Potassium 4.6 mmol/L (3.5-5.0)
[2021-11-28 06:02] LABS: eGFR CKD-EPI 87.3 (>60)
[2021-11-28] MEDS: SPIRIVA Respimat (tiotropium) 2.5 mcg/inh Inhaler INH SCH (07:13)
[2021-11-28] MEDS: Mometasone/Formoter 200/5 MDI INH SCH ×2 (07:13→20:05)
[2021-11-28] MEDS: Nystatin TOP POWDER 15 GM BTL TOPICAL SCH ×2 (09:42→22:14)
[2021-11-28] MEDS: Cefepime 2 GM in Dextrose 2 GM/50 ML BAG IV SCH ×2 (11:30→22:04)
[2021-11-29] MEDS: Albuterol HFA INHALER 8 gm MDI INH SCH ×4 (00:54→19:24)
[2021-11-29] MEDS: Enoxaparin 40 MG/0.4 ML SYR SUBCUT SCH (04:35)
[2021-11-29 06:29] LABS: ABS Monocytes 0.7 10^3/ul (0-0.8); ABS Neutrophils 7.5 10^3/ul (1.5-7.7); Eosinophil % 0.1 %; Hematocrit 35 % (35-47); Hemoglobin 11.3 g/dL (12.0-16.0); Lymphocyte % 26.7 %; Mean Corpuscular HGB Conc 33 g/dL (31-36); Mean Corpuscular Hemoglobin 29 pg (27-31); Mean Corpuscular Volume 88 fL (80-97); Mean Platelet Volume 7.4 fL (7.4-10.4); Platelet Count 374 10^3/uL (150-450); Red Blood Count 3.93 10^6 /uL (3.70-4.87); Red Cell Distribution Width 15 % (10-15); White Blood Count 11.3 10^3/uL (3.5-10.8)
[2021-11-29] MEDS: Mometasone/Formoter 200/5 MDI INH SCH ×2 (07:59→19:24)
[2021-11-29] MEDS: SPIRIVA Respimat (tiotropium) 2.5 mcg/inh Inhaler INH SCH (07:59)
[2021-11-29] MEDS: Nystatin TOP POWDER 15 GM BTL TOPICAL SCH ×2 (08:05→23:15)
[2021-11-29] MEDS: Cefepime 2 GM in Dextrose 2 GM/50 ML BAG IV SCH ×2 (10:59→23:06)
[2021-11-30] MEDS: Albuterol HFA INHALER 8 gm MDI INH SCH ×3 (01:50→12:02)
[2021-11-30] MEDS: Enoxaparin 40 MG/0.4 ML SYR SUBCUT SCH (04:45)
[2021-11-30] MEDS: Mometasone/Formoter 200/5 MDI INH SCH (07:23)
[2021-11-30] MEDS: SPIRIVA Respimat (tiotropium) 2.5 mcg/inh Inhaler INH SCH (07:23)
[2021-11-30 08:12] LABS: ABS Basophils 0.1 10^3/ul (0-0.2); ABS Eosinophils 0.1 10^3/ul (0-0.6); ABS Lymphocytes 4.8 10^3/ul (1.0-4.8); ABS Monocytes 0.8 10^3/ul (0-0.8); ABS Neutrophils 7.5 10^3/ul (1.5-7.7); Eosinophil % 0.5 %; Hematocrit 37 % (35-47); Hemoglobin 12.1 g/dL (12.0-16.0); Lymphocyte % 36.3 %; Mean Corpuscular HGB Conc 33 g/dL (31-36); Mean Corpuscular Hemoglobin 29 pg (27-31); Mean Corpuscular Volume 89 fL (80-97); Mean Platelet Volume 7.8 fL (7.4-10.4); Platelet Count 405 10^3/uL (150-450); Red Blood Count 4.18 10^6 /uL (3.70-4.87); Red Cell Distribution Width 15 % (10-15); White Blood Count 13.2 10^3/uL (3.5-10.8)
[2021-11-30 08:30] LABS: Calcium 9.3 mg/dL (8.6-10.3); Potassium 4.2 mmol/L (3.5-5.0); eGFR CKD-EPI 89.4 (>60)
[2021-11-30] MEDS: Nystatin TOP POWDER 15 GM BTL TOPICAL SCH (09:10)
[2021-11-30] MEDS: Cefepime 2 GM in Dextrose 2 GM/50 ML BAG IV SCH (11:15)
[2021-11-30 11:28] VITALS: BP 112/63
== END 2021-11-30 18:07 | disposition home or self-care (01) | DRG 193 ==
LOC: ED 16:55 → SUATTDRO 23:29 → EDHOLD 23:29 → MED 11-26 12:08
PROVIDERS: ADMIT Internal Medicine; ATTEND Internal Medicine

== ENCOUNTER 2022-05-07 09:29 | Inpatient (IN) ==
[2022-05-07] MEDS ORDERED: Lactated Ringers 1000 ml BAG 1,000 ML IV ONE ×2 (10:21→11:51)
[2022-05-07] MEDS ORDERED: Cefepime 2 GM in Dextrose 2 GM/50 ML BAG IV ONE (10:21)
[2022-05-07] MEDS ORDERED: Azithromycin 500 mg/250 ml NS 500 MG/250 ML BAG IVPB ONE (10:21)
[2022-05-07 11:27] LABS: ABS Basophils 0.1 10^3/ul (0-0.2); ABS Lymphocytes 3.2 10^3/ul (1.0-4.8); ABS Monocytes 1.3 10^3/ul (0-0.8); ABS Neutrophils 15.3 10^3/ul (1.5-7.7); Eosinophil % 0.2 %; Hematocrit 42 % (35-47); Hemoglobin 13.6 g/dL (12.0-16.0); Mean Corpuscular HGB Conc 32 g/dL (31-36); Mean Corpuscular Hemoglobin 28 pg (27-31); Mean Corpuscular Volume 88 fL (80-97); Mean Platelet Volume 8.5 fL (7.4-10.4); Platelet Count 283 10^3/uL (150-450); Red Blood Count 4.78 10^6 /uL (3.70-4.87); Red Cell Distribution Width 15 % (10-15)
[2022-05-07 12:14] LABS: Albumin 3.9 g/dL (3.2-5.2); Albumin/Globulin Ratio 1.1 (1-3); C Reactive Protein 153.14 mg/L (<8.01); Calcium 9.4 mg/dL (8.6-10.3); Globulin 3.5 g/dL (2-4); Potassium 4.1 mmol/L (3.5-5.0); Total Bilirubin 0.7 mg/dL (0.2-1.0); Total Protein 7.4 g/dL (6.4-8.9); eGFR CKD-EPI 70.9 (>60)
[2022-05-07] MEDS ORDERED: methylPREDNISolone SOD SUCC 125 mg 2 ML VIAL IV ONE (13:20)
[2022-05-07] MEDS ORDERED: Albuterol/Ipratropium NEB.SOL (2.5/0.5 MG) 3 ML NEB.SOLN INH ONE (13:21)
[2022-05-07] MEDS ORDERED: Ondansetron 4 mg VIAL 2 MG/ML 2 ml VIAL IV PRN (14:34)
[2022-05-07] MEDS ORDERED: Albuterol 2.5mg/3 ml (0.083%) NEB.SOLN INH PRN (14:34)
[2022-05-07] MEDS ORDERED: Azithromycin 500 mg/250 ml NS 500 MG/250 ML BAG IVPB SCH (15:00)
[2022-05-07] MEDS: Albuterol/Ipratropium NEB.SOL (2.5/0.5 MG) 3 ML NEB.SOLN INH SCH ×2 (15:27→22:34)
[2022-05-07] MEDS: Enoxaparin 40 MG/0.4 ML SYR SUBCUT SCH (15:50)
[2022-05-07] MEDS: cefTRIAXone 1 gm/50 mL D5W 1 GM/50 ML BAG IV SCH (15:50)
[2022-05-08] MEDS: Albuterol/Ipratropium NEB.SOL (2.5/0.5 MG) 3 ML NEB.SOLN INH SCH ×4 (07:17→19:25)
[2022-05-08 07:38] LABS: ABS Basophils 0.1 10^3/ul (0-0.2); ABS Monocytes 0.3 10^3/ul (0-0.8); ABS Neutrophils 14.2 10^3/ul (1.5-7.7); Eosinophil % 0.2 %; Hematocrit 40 % (35-47); Hemoglobin 12.6 g/dL (12.0-16.0); Lymphocyte % 12.3 %; Mean Corpuscular HGB Conc 32 g/dL (31-36); Mean Corpuscular Hemoglobin 28 pg (27-31); Mean Corpuscular Volume 88 fL (80-97); Mean Platelet Volume 8.5 fL (7.4-10.4); Platelet Count 248 10^3/uL (150-450); Red Cell Distribution Width 15 % (10-15); White Blood Count 16.5 10^3/uL (3.5-10.8)
[2022-05-08 07:39] LABS: Urine Appearance Cloudy; Urine Bilirubin Negative (Negative); Urine Blood 1+ (Negative); Urine Color Yellow; Urine Glucose Negative (Negative); Urine Ketones Negative (Negative); Urine Nitrite Negative (Negative); Urine Protein 1+(30 mg/dL) (Negative); Urine Specific Gravity 1.027 (1.002-1.030); Urine Urobilinogen Negative (Negative)
[2022-05-08 08:05] LABS: Calcium 9.4 mg/dL (8.6-10.3); Magnesium 1.9 mg/dL (1.9-2.7)
[2022-05-08 08:09] LABS: Urine Bacteria Absent (Absent); Urine Red Blood Cell 1+(3-5/hpf) (Absent); Urine Squamous Epithelial Cell Present (Absent); Urine White Blood Cell 1+(6-10/hpf) (Absent)
[2022-05-08] MEDS: cefTRIAXone 1 gm/50 mL D5W 1 GM/50 ML BAG IV SCH (14:23)
[2022-05-08] MEDS: Enoxaparin 40 MG/0.4 ML SYR SUBCUT SCH (14:23)
[2022-05-08] MEDS: Azithromycin 500 mg/250 ml NS 500 MG/250 ML BAG IVPB SCH (15:04)
[2022-05-09] MEDS ORDERED: Benzocaine/Menthol LOZ PO PRN (01:30)
[2022-05-09 07:06] LABS: ABS Lymphocytes 2.8 10^3/ul (1.0-4.8); ABS Neutrophils 13.8 10^3/ul (1.5-7.7); Hematocrit 36 % (35-47); Hemoglobin 11.7 g/dL (12.0-16.0); Lymphocyte % 15.7 %; Mean Corpuscular HGB Conc 32 g/dL (31-36); Mean Corpuscular Hemoglobin 28 pg (27-31); Mean Corpuscular Volume 88 fL (80-97); Mean Platelet Volume 8.9 fL (7.4-10.4); Platelet Count 251 10^3/uL (150-450); Red Blood Count 4.14 10^6 /uL (3.70-4.87); Red Cell Distribution Width 15 % (10-15); White Blood Count 17.6 10^3/uL (3.5-10.8)
[2022-05-09] MEDS: Albuterol/Ipratropium NEB.SOL (2.5/0.5 MG) 3 ML NEB.SOLN INH SCH ×4 (07:06→19:53)
[2022-05-09 07:15] LABS: Calcium 8.8 mg/dL (8.6-10.3); Potassium 3.9 mmol/L (3.5-5.0); eGFR CKD-EPI 88.7 (>60)
[2022-05-09] MEDS: Aspirin EC 81 mg TAB.EC (enteric coated) PO SCH (08:33)
[2022-05-09] MEDS: Enoxaparin 40 MG/0.4 ML SYR SUBCUT SCH (14:15)
[2022-05-09] MEDS: cefTRIAXone 1 gm/50 mL D5W 1 GM/50 ML BAG IV SCH (14:19)
[2022-05-09] MEDS: Azithromycin 500 mg/250 ml NS 500 MG/250 ML BAG IVPB SCH (15:05)
[2022-05-10 06:39] LABS: ABS Lymphocytes 2.4 10^3/ul (1.0-4.8); ABS Monocytes 0.6 10^3/ul (0-0.8); ABS Neutrophils 8.6 10^3/ul (1.5-7.7); Hematocrit 36 % (35-47); Hemoglobin 11.4 g/dL (12.0-16.0); Lymphocyte % 20.7 %; Mean Corpuscular HGB Conc 32 g/dL (31-36); Mean Corpuscular Hemoglobin 28 pg (27-31); Mean Corpuscular Volume 88 fL (80-97); Mean Platelet Volume 8.9 fL (7.4-10.4); Platelet Count 266 10^3/uL (150-450); Red Blood Count 4.06 10^6 /uL (3.70-4.87); Red Cell Distribution Width 15 % (10-15); White Blood Count 11.7 10^3/uL (3.5-10.8)
[2022-05-10] MEDS: Albuterol/Ipratropium NEB.SOL (2.5/0.5 MG) 3 ML NEB.SOLN INH SCH ×3 (07:10→15:22)
[2022-05-10 07:12] LABS: Calcium 8.7 mg/dL (8.6-10.3); Potassium 3.9 mmol/L (3.5-5.0); eGFR CKD-EPI 88.3 (>60)
[2022-05-10] MEDS: Aspirin EC 81 mg TAB.EC (enteric coated) PO SCH (09:27)
[2022-05-10] MEDS: SPIRIVA Respimat (tiotropium) 2.5 mcg/inh Inhaler INH SCH ×2 (11:29→15:24)
[2022-05-10] MEDS: Mometasone/Formoter 100/5 MDI INH SCH ×3 (11:29→20:54)
[2022-05-10] MEDS: cefTRIAXone 1 gm/50 mL D5W 1 GM/50 ML BAG IV SCH (16:57)
[2022-05-10] MEDS: Enoxaparin 40 MG/0.4 ML SYR SUBCUT SCH (16:58)
[2022-05-10] MEDS ORDERED: Albuterol/Ipratropium NEB.SOL (2.5/0.5 MG) 3 ML NEB.SOLN INH PRN (18:46)
[2022-05-11] MEDS: Aspirin EC 81 mg TAB.EC (enteric coated) PO SCH (07:42)
[2022-05-11] MEDS: Mometasone/Formoter 100/5 MDI INH SCH ×2 (07:51→22:22)
[2022-05-11] MEDS: SPIRIVA Respimat (tiotropium) 2.5 mcg/inh Inhaler INH SCH (07:55)
[2022-05-11] MEDS ORDERED: Senna TAB 8.6 mg TAB PO PRN (09:08)
[2022-05-11] MEDS ORDERED: Psyllium PAK PO SCH (10:00)
[2022-05-11] MEDS: Enoxaparin 40 MG/0.4 ML SYR SUBCUT SCH (16:06)
[2022-05-11] MEDS: cefTRIAXone 1 gm/50 mL D5W 1 GM/50 ML BAG IV SCH (18:22)
[2022-05-11 19:45] VITALS: BP 139/65
== END 2022-05-11 20:32 | disposition home or self-care (01) | DRG 871 ==
LOC: EDHOLD 09:29 → ED 09:29 → SUATTDRO 14:35 → MEDTELE 05-08 00:11
PROVIDERS: ADMIT Student in an Organized Health Care Education/Training Program; ATTEND Internal Medicine